=== PATIENT | male | born 1990 | race African-American/Black ===

== ENCOUNTER 2019-12-26 14:26 | Inpatient (IN) ==
--- NOTE | 2019-12-26 14:56 | Emergency Department Note ---
Impression & Plan Rhabdomyolysis, Edema of both upper extremities ED Provider Note NAME: MARIZOL [id number] SONG AGE: 29 SEX: M : 1990 ARRIVES VIA: Walk-In INFORMANT: [Patient][[facility] staff] ED PROVIDER(S): [Jose Huggins MD] CHIEF COMPLAINT: Arm swelling HISTORY OF PRESENT ILLNESS: The patient is a 29-year-old male prisoner who states that last week, 5 days ago, he exercised at the gym. He did a lot of curls and pull-ups. The next day, his arms were sore. Over the last few days he has noticed increasing edema of his arms from the biceps to the mid forearms. There is some pain but it is minimal. The patient states that today, his urine was dark. [facility] and was sent to the ED for the possibility of rhabdomyolysis. The patient states he has never had this happen to him before. He has never had dark urine before. He has no known kidney issues. Again, he has minimal to no pain, just the swelling. It is hard to straighten his elbows completely because of the edema. There has been no cough or cold or shortness of breath. No chest pain, no abd ominal pain. REVIEW OF SYSTEMS: See HPI for pertinent positives and negatives. A total of ten systems were reviewed and were otherwise negative. PMHx/PSHx: See Below SOCIAL HISTORY: See Below. PHYSICAL EXAM: GENERAL: Patient is in no acute distress. HEENT: No acute trauma, normocephalic atraumatic, mucous membranes moist, no nasal congestion, no scleral icterus. NECK: No stridor, no adenopathy, no meningismus, trachea is midline. LUNGS: Clear to auscultation bilaterally, no wheeze, no rhonchi, breath sounds equal. HEART: Without murmurs gallops or rubs, regular rate and rhythm. ABDOMEN: Soft, nontender, bowel sounds positive, no hernias, no peritonitis. EXTREMITIES: No cyanosis. Equal pulses in both upper extremities. He has difficulty straightening both arms at the elbows. There is edema from the mid biceps to the mid forearms. Minimal pain with palpation. No erythema. No lower extremity edema. NEUROLOGIC: Oriented x 3, no acute motor or sensory deficits, no focal weakness. SKIN: No rash, no jaundice, no diaphoresis. DIFFERENTIAL DIAGNOSIS: Rhabdomyolysis, DVT, muscle breakdown, muscle tear, compartment syndrome, renal failure, dehydration, electrolyte imbalance. EMERGENCY DEPARTMENT COURSE/PROCEDURES: ECG: Indication was possible renal failure as well as upper extremity pain. The ECG shows a normal sinus rhythm with a rate of 60. There is no ST elevation, no PVCs. The QTc is 406. Continuous Cardiac Monitoring: An order was placed for continuous cardiac monitoring. The monitor shows a rate of 58 with sinus bradycardia. MEDICAL DECISION MAKING: There is no leukocytosis or concerning anemia. There is a normal platelet count. No renal failure or significant electrolyte abnormality. Lactic acid level is not elevated making sepsis unlikely. AST and ALT were elevated, the bilirubin was normal. Total creatinine kinase was elevated at over 100,000. This creatinine kinase elevation is consistent with rhabdomyolysis. The patient appeared to be in a euthyroid state. Urinalysis showed some red cells, no evidence for infection. Bilateral upper extremity ultrasound did not show any evidence for DVT. On exam, there was no evidence for compartment syndrome, the patient did not have any real pain in the upper arms. There were strong pulses in both upper extremities bilaterally. The patient received IV saline, 2 L of saline were given. The patient presents with upper arm edema. He was working out with weights before his symptoms began. He appears to have rhabdomyolysis. I did speak with orthopedics--no emergent orthopedic intervention is required. I spoke at length with the patient and guards. I spoke with the vocational case manager. Hospitalization is warranted. The on-call hospitalist was consulted. Past Med/Surg History Medical History Asthma Surgical History No pertinent past surgical history Family History Other Family history non-contributory Social History Smoking Status: Former smoker Tobacco Type: Cigarettes Hx Alcohol Use: No Hx Substance Use: No Preferred Language: Azeri Communication Ability: Effective Public Health Engineer Required: No Beliefs That Will Affect Care: None Current Living Situation: Other Current Living Situation Comment: [facility] Feels Safe at Home: Yes Allergies Allergies Allergy/AdvReac Type Severity Reaction Status Date / Time No Known Allergies Allergy Verified 12/26/19 15:51 Home Meds Home Medications Medication Instructions Recorded Confirmed fluticasone propionate 1 applic TOPICAL TID 12/26/19 12/26/19 [id number], wh 1 applic TOPICAL BID 12/26/19 12/26/19 [Cetaphil Moisturizing] levalbuterol tartrate [Xopenex HFA] 2 inh INHALATION QID PRN 12/26/19 12/26/19 terbinafine HCl 1 applic TOPICAL TID 12/26/19 12/26/19 Results & Data (ED) Vital Signs Vital Signs - 24 hr 12/26/19 14:33 12/26/19 15:35 12/26/19 15:44 Temperature 37.3 C Temperature Source Oral Pulse Rate 80 69 65 Pulse Rate [Apical] Respiratory Rate 20 17 17 Respiratory Effort / Characteristics Non-Labored Respiratory Depth Normal Blood Pressure 134/72 129/76 Blood Pressure [Right Arm] Blood Pressure Mean 92 86 Blood Pressure Mean [Right Arm] Pulse Oximetry 99 Oxygen Delivery Method Room Air Sepsis Recent Fever Within 48 Hours No Sepsis New/Unexplained Change in Mental Status N/A Sepsis Action Taken by Nursing No Action Required 12/26/19 17:44 12/26/19 17:45 Temperature Temperature Source Pulse Rate 57 L Pulse Rate [Apical] 66 Respiratory Rate 18 18 Respiratory Effort / Characteristics Respiratory Depth Blood Pressure 154/75 H Blood Pressure [Right Arm] 154/75 H Blood Pressure Mean 97 Blood Pressure Mean [Right Arm] 101 Pulse Oximetry 100 100 Oxygen Delivery Method Room Air Room Air Sepsis Recent Fever Within 48 Hours Sepsis New/Unexplained Change in Mental Status Sepsis Action Taken by [facility]itent[facility] Medications Current Medication List: was personally reviewed by me Laboratory Data Attestation: I reviewed the patient's lab results. Result diagrams: 12/26/19 15:10 12/26/19 20:52 Lab Results 12/26/19 12/26/19 12/26/19 Range/Units 15:10 15:10 15:27 WBC 6.54 (4.8-10.8) K/uL RBC 5.07 (4.7-6.1) M/uL Hgb 14.2 (14.0-18.0) g/dL Hct 44.8 (42-52) % MCV 88.4 (80-100) fL MCH 28.0 (25-34) pg MCHC 31.7 L (32-36) g/dL RDW Std Deviation 45.1 (36.4-46.3) fL RDW Coeff of Sulema 13.9 (11.5-14.5) % Plt Count 189 (130-400) K/uL MPV 12.0 H (7.4-10.4) fL Immature Gran % (Auto) 0.2 % Neut % (Auto) 77.2 % Lymph % (Auto) 17.1 % Webb % (Auto) 4.4 % Eos % (Auto) 0.9 % Baso % (Auto) 0.2 % Neut # (Auto) 5.05 (1.4-6.5) K/uL Lymph # (Auto) 1.12 L (1.2-3.4) K/uL Webb # (Auto) 0.29 (0.11-0.59) K/uL Eos # (Auto) 0.06 (0-0.5) K/uL Baso # (Auto) 0.01 (0-0.2) K/uL Immature Gran # (Auto) 0.01 (0.00-0.02) K/uL Sodium 144 (136-145) mmol/L Potassium 4.3 (3.5-5.1) mmol/L Chloride 110 H (98-107) mmol/L Carbon Dioxide 29 (21-32) mmol/L Anion Gap 5.0 (3-11) BUN 12 (7-18) mg/dl Creatinine 1.15 (0.6-1.4) mg/dl Est Cr Clr Drug Dosing 107.2 ml/min Est GFR ( Amer) 97.7 Est GFR (Non-Af Amer) 84.3 BUN/Creatinine Ratio 10.1 (10-20) Glucose 90 (70-99) mg/dl Lactate 1.5 (0.4-2.0) mmol/L Calcium 8.6 (8.5-10.1) mg/dl Magnesium 2.1 (1.8-2.4) mg/dl Total Bilirubin 0.5 (0.2-1) mg/dl AST 1880 H (15-37) U/L ALT 493 H (12-78) U/L Alkaline Phosphatase 75 (45-117) U/L Total Creatine Kinase > [id number] H (39-308) U/L Troponin I < 0.015 (0-0.045) ng/ml Total Protein 7.1 (6.4-8.2) gm/dl Albumin 3.7 (3.4-5.0) gm/dl Globulin 3.4 (2.5-4.0) gm/dl Albumin/Globulin Ratio 1.1 (0.9-2) TSH 0.943 (0.300-4.500) uIu/ml Urine Color Urine Appearance (Clear) Urine pH (4.5-7.5) Ur Specific Ward (1.000-1.030) Urine Protein (Negative) Urine Glucose (UA) (Negative) Urine Ketones (Negative) Urine Blood (Negative) Urine Nitrite (Negative) Urine Bilirubin (Negative) Urine Urobilinogen (Negative) Ur Leukocyte Esterase (Negative) Urine WBC (Auto) (0-5) /hpf Urine RBC (Auto) (0-4) /hpf U Hyaline Cast (Auto) (0-5) /lpf U Epithel Cells (Auto) (0-5) /lpf Urine Bacteria (Auto) (Negative) Hep Bs Antigen (Neg) Hepatitis C Antibody (Neg) 12/26/19 12/26/19 Range/Units 15:27 17:45 WBC (4.8-10.8) K/uL RBC (4.7-6.1) M/uL Hgb (14.0-18.0) g/dL Hct (42-52) % MCV (80-100) fL MCH (25-34) pg MCHC (32-36) g/dL RDW Std Deviation (36.4-46.3) fL RDW Coeff of Sulema (11.5-14.5) % Plt Count (130-400) K/uL MPV (7.4-10.4) fL Immature Gran % (Auto) % Neut % (Auto) % Lymph % (Auto) % Webb % (Auto) % Eos % (Auto) % Baso % (Auto) % Neut # (Auto) (1.4-6.5) K/uL Lymph # (Auto) (1.2-3.4) K/uL Webb # (Auto) (0.11-0.59) K/uL Eos # (Auto) (0-0.5) K/uL Baso # (Auto) (0-0.2) K/uL Immature Gran # (Auto) (0.00-0.02) K/uL Sodium (136-145) mmol/L Potassium (3.5-5.1) mmol/L Chloride (98-107) mmol/L Carbon Dioxide (21-32) mmol/L Anion Gap (3-11) BUN (7-18) mg/dl Creatinine (0.6-1.4) mg/dl Est Cr Clr Drug Dosing ml/min Est GFR ( Amer) Est GFR (Non-Af Amer) BUN/Creatinine Ratio (10-20) Glucose (70-99) mg/dl Lactate (0.4-2.0) mmol/L Calcium (8.5-10.1) mg/dl Magnesium (1.8-2.4) mg/dl Total Bilirubin (0.2-1) mg/dl AST (15-37) U/L ALT (12-78) U/L Alkaline Phosphatase (45-117) U/L Total Creatine Kinase (39-308) U/L Troponin I (0-0.045) ng/ml Total Protein (6.4-8.2) gm/dl Albumin (3.4-5.0) gm/dl Globulin (2.5-4.0) gm/dl Albumin/Globulin Ratio (0.9-2) TSH (0.300-4.500) uIu/ml Urine Color Yellow Urine Appearance Clear (Clear) Urine pH 8.5 H (4.5-7.5) Ur Specific Ward 1.018 (1.000-1.030) Urine Protein 1+ H (Negative) Urine Glucose (UA) Negative (Negative) Urine Ketones Negative (Negative) Urine Blood 3+ H (Negative) Urine Nitrite Negative (Negative) Urine Bilirubin Negative (Negative) Urine Urobilinogen Negative (Negative) Ur Leukocyte Esterase Negative (Negative) Urine WBC (Auto) 0 (0-5) /hpf Urine RBC (Auto) 5-10 H (0-4) /hpf U Hyaline Cast (Auto) 0 (0-5) /lpf U Epithel Cells (Auto) 5-10 H (0-5) /lpf Urine Bacteria (Auto) Negative (Negative) Hep Bs Antigen Neg (Neg) Hepatitis C Antibody Neg (Neg) Administered Medications Sodium Chloride (Nss 1000ml) 1,000 mls @ 200 mls/hr IV .Q5H ADRIANNA Stop: 01/25/20 18:43 Last Admin: 12/26/19 20:54 Dose: 200 mls/hr Documented by: [id number] Discontinued Medications Sodium Chloride (Nss 1000ml) 1,000 mls @ 999 mls/hr IV .Q1H1M ADRIANNA Stop: 12/26/19 16:00 Last Infusion: 12/26/19 16:54 Dose: 0 mls/hr Documented by: [id number] Admin: 12/26/19 15:36 Dose: 999 mls/hr Documented by: [id number] Sodium Chloride (Nss 1000ml) 1,000 mls @ 999 mls/hr IV .Q1H1M ONE Stop: 12/26/19 18:26 Last Infusion: 12/26/19 18:52 Dose: 0 mls/hr Documented by: [id number] Admin: 12/26/19 17:44 Dose: 999 mls/hr Documented by: [id number] Imaging Data Radiologist's Impression: US venous doppler UE BI HISTORY: 29 years-old Male swelling, poss clot acute pain and swelling of the bilateral upper cavities COMPARISON: None TECHNIQUE: Multiple real-time sonographic images of the bilateral upper cavity deep venous structures were obtained assessing grayscale appearance, color and spectral flow FINDINGS: Normal flow, compressibility, phasicity and augmentation of the bilateral upper extremity deep venous structures. Nonspecific subcutaneous edema is noted the bilateral antecubital fossa distributions. IMPRESSION: No sonographic evidence of deep venous thrombosis. Blood Pressure Blood Pressure Findings: Elevated blood pressure Blood Pressure Disposition: further management by hospitalist Discharge Plan Visit Data *Final* Discharge Date/Time: 12/26/19 20:20 Chief Complaint: Elbow Injury/Pain Stated Complaint: RHABDOMYOLYSIS ED Provider: Jose Huggins Discharge Problem: Rhabdomyolysis, Edema of both upper extremities Patient Disposition: Admitted As Inpatient Condition: Good Discharge Instructions Interventions: ED Discharge Assessment Last Done: 12/26/19 20:20 Discharge Problem: Rhabdomyolysis Qualifiers: Rhabdomyolysis type: non-traumatic Qualified Code(s): M62.82 - Rhabdomyolysis
[2019-12-26] MEDS ORDERED: SODIUM CHLORIDE 0.9% 1000ML 1,000 ML IV SCH (15:00)
[2019-12-26 15:18] LABS: Basophils # (auto) 0.01 K/uL (0-0.2); Basophils % (auto) 0.2 %; Eosinophils # (auto) 0.06 K/uL (0-0.5); Eosinophils % (auto) 0.9 %; Hematocrit (blood only) 44.8 % (42-52); Hemoglobin 14.2 g/dL (14.0-18.0); Immature Granulocytes # (auto) 0.01 K/uL (0.00-0.02); Immature Granulocytes % (auto) 0.2 %; Lymphocytes # (auto) 1.12 K/uL (1.2-3.4); Lymphocytes % (auto) 17.1 %; Mean Corpuscular Hgb Conc 31.7 g/dL (32-36); Mean Corpuscular Volume 88.4 fL (80-100); Monocytes # (auto) 0.29 K/uL (0.11-0.59); Monocytes % (auto) 4.4 %; Neutrophils # (auto) 5.05 K/uL (1.4-6.5); Neutrophils % (auto) 77.2 %; Platelet Count 189 K/uL (130-400); RDW Coefficient of Variation 13.9 % (11.5-14.5); RDW Standard Deviation 45.1 fL (36.4-46.3); Red Blood Count 5.07 M/uL (4.7-6.1); White Blood Count 6.54 K/uL (4.8-10.8)
[2019-12-26 16:11] LABS: Alanine Aminotransferase 493 U/L (12-78); Albumin Globulin Ratio 1.1 (0.9-2); Albumin Level 3.7 gm/dl (3.4-5.0); Alkaline Phosphatase 75 U/L (45-117); BUN Creatinine Ratio 10.1 (10-20); Bilirubin,Total 0.5 mg/dl (0.2-1); Blood Urea Nitrogen 12 mg/dl (7-18); Calcium 8.6 mg/dl (8.5-10.1); Carbon Dioxide 29 mmol/L (21-32); Chloride 110 mmol/L (98-107); Creatinine Clr Calc Pharmacy 107.2 ml/min; Est GFR (African American) 97.7; Est GFR (Non-African American) 84.3; Globulin 3.4 gm/dl (2.5-4.0); Glucose 90 mg/dl (70-99); Potassium 4.3 mmol/L (3.5-5.1); Sodium 144 mmol/L (136-145); Thyroid Stimulating Hormone 0.943 uIu/ml (0.300-4.500); Total Protein 7.1 gm/dl (6.4-8.2); Troponin I < 0.015 ng/ml (0-0.045)
[2019-12-26 16:12] LABS: Magnesium 2.1 mg/dl (1.8-2.4)
[2019-12-26 17:13] LABS: Aspartate Aminotransferase 1880 U/L (15-37); Creatine Kinase > 100000 U/L (39-308)
--- NOTE | 2019-12-26 17:17 | Ultrasound Report ---
US venous doppler UE BI HISTORY: 29 years-old Male swelling, poss clot acute pain and swelling of the bilateral upper caviti es COMPARISON: None TECHNIQUE: Multiple real-time sonographic images of the bilateral upper cavity deep venous structures were obtained assessing grayscale appearance, color and spectral flow FINDINGS: Normal flow, compressibility, phasicity and augmentation of the bilateral upper extremity deep venous structures. Nonspecific subcutaneous edema is noted the bilateral antecubital fossa distributions. IMPRESSION: No sonographic evidence of deep venous thrombosis. ACT 112: Negative or not required by law. The above report was generated using voice recognition software. It may contain grammatical, syntax o r spelling errors. Electronically signed by: Lion Montanez M.D. 12/26/2019 5:16 PM
[2019-12-26] MEDS ORDERED: SODIUM CHLORIDE 0.9% 1000ML 1,000 ML IV ONE (17:26)
[2019-12-26 18:02] LABS: Appearance Urine Clear (Clear); Bacteria Urine Automated Negative (Negative); Bilirubin Urine Negative (Negative); Blood Urine 3+ (Negative); Cast Urine Automated 0 /lpf (0-5); Color Urine Yellow; Glucose Urine UA Negative (Negative); Ketones Urine Negative (Negative); Leukocyte Esterase Urine Negative (Negative); Nitrite Urine Negative (Negative); Specific Gravity Urine 1.018 (1.000-1.030); Urobilinogen Urine Negative (Negative); WBC Urine Automated 0 /hpf (0-5); pH Urine 8.5 (4.5-7.5)
[2019-12-26 18:04] LABS: Protein Urine 1+ (Negative)
[2019-12-26 18:05] LABS: Sulfosalicylic Acid Urine Positive (Negative)
--- NOTE | 2019-12-26 19:10 | History & Physical Report ---
Date of Service December 26, 2019 Assessment & Plan (1) Rhabdomyolysis: 29 yo M PMHx asthma presents for rhabdomyolysis and transaminitis. Rhabdomyolysis without acute kidney injury or compartment syndrome: -CK on arrival >100,000. -Without MARY at this time, Creatinine 1.1 on arrival though unclear baseline. -Patient without pain in bilateral UE at this time, and without signs of compartment syndrome and no DVT on US bilateral UE. -Has received a total of 2L NSS bolus in ED; will start NSS at rate of 200cc/hr once that completes. -Strict Is/Os to monitor for oliguria. -Repeat CMP, phosphorus, CPK q6h to trend LFTs, kidney function, electrolyte derangements. -Serial exams to continue to monitor for compartment syndrome. Transaminitis: -With AST 1880, ALT 493 on arrival. -Likely due to rhabdomyolysis as above. -However, due to patients risk factors living in a correctional facility, have ordered Hepatitis panel and APAP level. -Trend LFTs while admitted. Microscopic Hematuria: -On UA patient with blood and 5-10 RBCs. -While would expect to find blood on UA due to myoglobinuria in rhabdomyolysis, would not expect microscopic hematuria. -Will need repeat UA in the future to evaluate for continued microscopic hematuria. Asthma: -Chronic, on albuterol PRN outpatient. -Continue albuterol PRN. Code Status: FULL CODE FEN/GI: Regular diet DVT ppx: SCDs Dispo: Med/Surg with Telemetry (2) Transaminitis: (3) Microscopic hematuria: (4) Asthma: History of Present Illness Primary Care Provider: [facility] 29 yo M PMHx asthma presents from [facility] for bilateral bicep swelling x5 days. Reports that on Wednesday he did his typical work out, which includes bicep curls pushups and pull ups, and the following day he felt sore. Due to his soreness he took 1 or 2 ibuprofen but no Tylenol. Since Wednesday has started noticing worsening swelling of his biceps bilaterally as well as darkening urine, though the soreness he had on Wednesday has somewhat resolved. Was evaluated at the [facility] and advised to come to ED for concern for rhabdomyolysis. Does not recall any direct trauma to either arm. Was not working out in a more vigorous capacity than his norm. No fevers or chills, no SOB or CP, no nausea or vomiting, no arm or leg pains, no constipation or diarrhea. No new medications. In the ED had labwork which showed AST 1880, ALT 493, CK >100,000, Cr 1.1 (no baseline on file), TSH normal, CBC without anemia, leukocytosis, thrombocytopenia. Had US bilateral UE without evidence of DVT. UA with blood and RBCs. Dr. Sousa with Orthopedics evaluated patient and did not feel that the patient was developing compartment syndrome. Patient was given a total of 2L NSS boluses. Hospitalist service consulted for admission. Allergies Allergy/AdvReac Type Severity Reaction Status Date / Time No Known Allergies Allergy Verified 12/26/19 15:51 Home Medications Home Medications Medication Instructions Recorded Confirmed Type fluticasone propionate 1 applic TOPICAL TID 12/26/19 12/26/19 History baetxvzm-wkrbhwggyny-ubpdg, wh 1 applic TOPICAL BID 12/26/19 12/26/19 History [Cetaphil Moisturizing] levalbuterol tartrate [Xopenex HFA] 2 inh INHALATION QID PRN 12/26/19 12/26/19 History terbinafine HCl 1 applic TOPICAL TID 12/26/19 12/26/19 History Past Med/Surg History Medical History Asthma Surgical History No pertinent past surgical history Family History Other Family history non-contributory Social History Smoking Status: Former smoker Tobacco Type: Cigarettes Current Living Situation: Other Current Living Situation Comment: [facility] Feels Safe at Home: Yes Review of Systems Review of Systems: All systems reviewed & are unremarkable except as noted in HPI & below Constitutional: no fever and no chills Respiratory: no cough and no dyspnea Cardiovascular: no chest pain, no palpitations and no edema Gastrointestinal: no abdominal pain, no constipation and no diarrhea/loose stools Physical Exam Constitutional: WD/WN, vitals as above Eyes: PERRL, conjunctivae normal, anicteric sclerae ENMT: external ear and nose normal, oropharynx normal Neck: normal visual inspection Respiratory: normal respiratory effort, lungs clear to auscultation Cardiovascular: RRR, no murmur, no edema peripheral pulses intact bilateral UE Gastrointestinal (Abdomen): normal bowel sounds, soft, nontender, no hepatosplenomegaly Musculoskeletal: no cyanosis or clubbing, extremities motor strength 5/5 Skin: no rashes, warm and dry bilateral biceps with tense skin, no erythema or warmth, no tenderness to palpation Neurologic: moves all extremities; no focal motor deficits Speech / Cognition: normal speech Motor/Sensory: no tremor sensation intact bilateral UE Psychiatric: A+Ox3, euthymic affect Results & Data Results & Data ([facility]) Vital Signs (Past 12 Hours) Vital Signs Temp Pulse Pulse Resp BP BP Pulse Ox 12/26/19 18:48 58 L 19 100 12/26/19 17:45 66 18 154/75 H 100 12/26/19 17:44 57 L 18 154/75 H 100 12/26/19 15:44 65 17 12/26/19 15:35 69 17 129/76 12/26/19 14:33 37.3 C 80 20 134/72 99 Laboratory Results 12/26/19 12/26/19 12/26/19 Range/Units 17:45 15:27 15:27 WBC (4.8-10.8) K/uL RBC (4.7-6.1) M/uL Hgb (14.0-18.0) g/dL Hct (42-52) % MCV (80-100) fL MCH (25-34) pg MCHC (32-36) g/dL RDW Std Deviation (36.4-46.3) fL RDW Coeff of Sulema (11.5-14.5) % Plt Count (130-400) K/uL MPV (7.4-10.4) fL Immature Gran % (Auto) % Neut % (Auto) % Lymph % (Auto) % [place] % (Auto) % Eos % (Auto) % Baso % (Auto) % Neut # (Auto) (1.4-6.5) K/uL Lymph # (Auto) (1.2-3.4) K/uL [place] # (Auto) (0.11-0.59) K/uL Eos # (Auto) (0-0.5) K/uL Baso # (Auto) (0-0.2) K/uL Immature Gran # (Auto) (0.00-0.02) K/uL Sodium (136-145) mmol/L Potassium (3.5-5.1) mmol/L Chloride (98-107) mmol/L Carbon Dioxide (21-32) mmol/L Anion Gap (3-11) BUN (7-18) mg/dl Creatinine (0.6-1.4) mg/dl Est Cr Clr Drug Dosing ml/min Est GFR ( Amer) Est GFR (Non-Af Amer) BUN/Creatinine Ratio (10-20) Glucose (70-99) mg/dl Lactate 1.5 (0.4-2.0) mmol/L Calcium (8.5-10.1) mg/dl Magnesium (1.8-2.4) mg/dl Total Bilirubin (0.2-1) mg/dl AST (15-37) U/L ALT (12-78) U/L Alkaline Phosphatase (45-117) U/L Total Creatine Kinase (39-308) U/L Troponin I (0-0.045) ng/ml Total Protein (6.4-8.2) gm/dl Albumin (3.4-5.0) gm/dl Globulin (2.5-4.0) gm/dl Albumin/Globulin Ratio (0.9-2) TSH (0.300-4.500) uIu/ml Urine Color Yellow Urine Appearance Clear (Clear) Urine pH 8.5 H (4.5-7.5) Ur Specific [place] 1.018 (1.000-1.030) Urine Protein 1+ H (Negative) Urine Glucose (UA) Negative (Negative) Urine Ketones Negative (Negative) Urine Blood 3+ H (Negative) Urine Nitrite Negative (Negative) Urine Bilirubin Negative (Negative) Urine Urobilinogen Negative (Negative) Ur Leukocyte Esterase Negative (Negative) Urine WBC (Auto) 0 (0-5) /hpf Urine RBC (Auto) 5-10 H (0-4) /hpf U Hyaline Cast (Auto) 0 (0-5) /lpf U Epithel Cells (Auto) 5-10 H (0-5) /lpf Urine Bacteria (Auto) Negative (Negative) Hep Bs Antigen Pending Hepatitis C Antibody Pending 12/26/19 12/26/19 Range/Units 15:10 15:10 WBC 6.54 (4.8-10.8) K/uL RBC 5.07 (4.7-6.1) M/uL Hgb 14.2 (14.0-18.0) g/dL Hct 44.8 (42-52) % MCV 88.4 (80-100) fL MCH 28.0 (25-34) pg MCHC 31.7 L (32-36) g/dL RDW Std Deviation 45.1 (36.4-46.3) fL RDW Coeff of Sulema 13.9 (11.5-14.5) % Plt Count 189 (130-400) K/uL MPV 12.0 H (7.4-10.4) fL Immature Gran % (Auto) 0.2 % Neut % (Auto) 77.2 % Lymph % (Auto) 17.1 % [place] % (Auto) 4.4 % Eos % (Auto) 0.9 % Baso % (Auto) 0.2 % Neut # (Auto) 5.05 (1.4-6.5) K/uL Lymph # (Auto) 1.12 L (1.2-3.4) K/uL [place] # (Auto) 0.29 (0.11-0.59) K/uL Eos # (Auto) 0.06 (0-0.5) K/uL Baso # (Auto) 0.01 (0-0.2) K/uL Immature Gran # (Auto) 0.01 (0.00-0.02) K/uL Sodium 144 (136-145) mmol/L Potassium 4.3 (3.5-5.1) mmol/L Chloride 110 H (98-107) mmol/L Carbon Dioxide 29 (21-32) mmol/L Anion Gap 5.0 (3-11) BUN 12 (7-18) mg/dl Creatinine 1.15 (0.6-1.4) mg/dl Est Cr Clr Drug Dosing 107.2 ml/min Est GFR ( Amer) 97.7 Est GFR (Non-Af Amer) 84.3 BUN/Creatinine Ratio 10.1 (10-20) Glucose 90 (70-99) mg/dl Lactate (0.4-2.0) mmol/L Calcium 8.6 (8.5-10.1) mg/dl Magnesium 2.1 (1.8-2.4) mg/dl Total Bilirubin 0.5 (0.2-1) mg/dl AST 1880 H (15-37) U/L ALT 493 H (12-78) U/L Alkaline Phosphatase 75 (45-117) U/L Total Creatine Kinase > 282662 H (39-308) U/L Troponin I < 0.015 (0-0.045) ng/ml Total Protein 7.1 (6.4-8.2) gm/dl Albumin 3.7 (3.4-5.0) gm/dl Globulin 3.4 (2.5-4.0) gm/dl Albumin/Globulin Ratio 1.1 (0.9-2) TSH 0.943 (0.300-4.500) uIu/ml Urine Color Urine Appearance (Clear) Urine pH (4.5-7.5) Ur Specific [place] (1.000-1.030) Urine Protein (Negative) Urine Glucose (UA) (Negative) Urine Ketones (Negative) Urine Blood (Negative) Urine Nitrite (Negative) Urine Bilirubin (Negative) Urine Urobilinogen (Negative) Ur Leukocyte Esterase (Negative) Urine WBC (Auto) (0-5) /hpf Urine RBC (Auto) (0-4) /hpf U Hyaline Cast (Auto) (0-5) /lpf U Epithel Cells (Auto) (0-5) /lpf Urine Bacteria (Auto) (Negative) Hep Bs Antigen Hepatitis C Antibody Diagnostic Findings US venous doppler UE BI HISTORY: 29 years-old Male swelling, poss clot acute pain and swelling of the bilateral upper cavities COMPARISON: None TECHNIQUE: Multiple real-time sonographic images of the bilateral upper cavity deep venous structures were obtained assessing grayscale appearance, color and spectral flow FINDINGS: Normal flow, compressibility, phasicity and augmentation of the bilateral upper extremity deep venous structures. Nonspecific subcutaneous edema is noted the bilateral antecubital fossa distributions. IMPRESSION: No sonographic evidence of deep venous thrombosis. Code Status & VTE Plan VTE Prophylaxis Plan VTE Prophylaxis will be ordered: Yes Supervising Physician Co-Signing Physician Notes I personally examined the patient and verified all william points of history and exam, discussed case, and agree with decision making with Dr. Manning with the following additions/exceptions: Patient is a 29-year-old male with a history of asthma, who presents with bilateral upper extremity swelling and pain after a heavy upper body workout 4 days ago. He also had dark urine. He has no history of rhabdomyolysis personally or in his family history. He denies any other recent illnesses, no chest pain or shortness of breath, no nausea or vomiting, no diarrhea, no abdominal pains. He denies loss of sensation or strength in his arms or hands but is having difficulty bending at the elbow due to the edema. History and ROS reviewed as above Vitals reviewed Gen: AAOx3, NAD HEENT: Anicteric sclerae, EOMI CV: RRR no mgr nl S1S2 Pulm: CTAB no wcr Abd: +BS soft NT ND no masses or hernias Ext: Bilateral upper extremities with tense edema from mid biceps down to the mid forearms, nontender to the touch, 2+ radial pulses bilaterally, sensation intact to light touch in the forearms and hands throughout, motor strength 5 out of 5 in upper extremities bilaterally Skin: No rashes, warm/dry Neuro: Full strength throughout 29-year-old male here with severe rhabdomyolysis secondary to excessive abbey ghtlifting. -Aggressive IV fluid hydration and monitor for urine output-goal would be 200 mL's of urine per hour -Serial chemistries and CPK to ensure no electrolyte abnormalities, renal failure, and to ensure that CK is trending downward -If has electrolyte abnormalities, renal failure, would consult nephrology -If develops acidosis, would start bicarbonate infusion -Watch for clinical signs of compartment syndrome especially in the face of giving high levels of volume with normal saline Add on Lovenox for DVT prophylaxis Resident Activity Tracking Resident Involvement: Resident Care Provided Care Provided: Adult Hospital Medicine
--- NOTE | 2019-12-26 19:56 | Billing Data ---
Date of Service December 26, 2019 Coding Level of Care Code 40273 Initial Inpt Care Lvl 3
[2019-12-26 20:19] LABS: Hepatitis B Surface Antigen Neg (Neg)
[2019-12-26 20:48] LABS: Hepatitis C IgG 13Yrs+Old_Rflx Neg (Neg)
[2019-12-26] MEDS ORDERED: POLYETHYLENE (MIRALAX) 17 GM PACK PO PRN (20:48)
[2019-12-26] MEDS ORDERED: ONDANSETRON INJ 2 MG/ML 2 ML VIAL IV PRN (20:48)
[2019-12-26] MEDS ORDERED: LEVALBUTEROL TARTRATE 15 GM HFA.AER.AD INH PRN (20:48)
[2019-12-26] MEDS ORDERED: MoRPHine SULFATE 2 MG/ML CARP IV PRN (20:48)
[2019-12-26] MEDS: SODIUM CHLORIDE 0.9% 1000ML 1,000 ML IV SCH (20:54)
[2019-12-26 21:30] LABS: Albumin Level 3.5 gm/dl (3.4-5.0); BUN Creatinine Ratio 11.7 (10-20); Calcium 8.5 mg/dl (8.5-10.1); Creatinine Clr Calc Pharmacy 133.8 ml/min; Est GFR (African American) 126.3; Uric Acid 3.8 mg/dl (2.6-7.2)
[2019-12-26 21:37] LABS: Albumin Globulin Ratio 1.1 (0.9-2); Bilirubin,Total 0.6 mg/dl (0.2-1); Globulin 3.2 gm/dl (2.5-4.0); Phosphorus 3.4 mg/dl (2.5-4.9); Total Protein 6.7 gm/dl (6.4-8.2)
[2019-12-27] MEDS: SODIUM CHLORIDE 0.9% 1000ML 1,000 ML IV SCH ×6 (01:15→23:46)
[2019-12-27] MEDS: ENOXAPARIN INJ 40 MG/0.4 ML SYR SQ SCH (08:11)
[2019-12-27 08:34] LABS: Basophils # (auto) 0.01 K/uL (0-0.2); Basophils % (auto) 0.3 %; Eosinophils # (auto) 0.11 K/uL (0-0.5); Eosinophils % (auto) 2.8 %; Hematocrit (blood only) 41.6 % (42-52); Hemoglobin 13.4 g/dL (14.0-18.0); Lymphocytes # (auto) 1.43 K/uL (1.2-3.4); Lymphocytes % (auto) 36.4 %; Mean Corpuscular Hemoglobin 28.2 pg (25-34); Mean Corpuscular Hgb Conc 32.2 g/dL (32-36); Mean Corpuscular Volume 87.4 fL (80-100); Mean Platelet Volume 12.1 fL (7.4-10.4); Monocytes # (auto) 0.24 K/uL (0.11-0.59); Monocytes % (auto) 6.1 %; Neutrophils # (auto) 2.14 K/uL (1.4-6.5); Neutrophils % (auto) 54.4 %; Platelet Count 182 K/uL (130-400); RDW Coefficient of Variation 13.7 % (11.5-14.5); RDW Standard Deviation 44.2 fL (36.4-46.3); Red Blood Count 4.76 M/uL (4.7-6.1); White Blood Count 3.93 K/uL (4.8-10.8)
[2019-12-27 09:03] LABS: Albumin Level 3.2 gm/dl (3.4-5.0); BUN Creatinine Ratio 9.7 (10-20); Calcium 8.4 mg/dl (8.5-10.1); Creatinine Clr Calc Pharmacy 147.9 ml/min; Est GFR (African American) 135.9; Est GFR (Non-African American) 117.2; Potassium 4.3 mmol/L (3.5-5.1); Uric Acid 3.6 mg/dl (2.6-7.2)
[2019-12-27 09:32] LABS: Bilirubin Direct 0.1 mg/dl (0-0.2); Bilirubin,Total 0.6 mg/dl (0.2-1); Phosphorus 3.3 mg/dl (2.5-4.9); Total Protein 6.1 gm/dl (6.4-8.2)
--- NOTE | 2019-12-27 13:38 | Hospitalist Progress Note ---
Date of Service December 27, 2019 Assessment & Plan (1) Rhabdomyolysis: 29 yo M PMHx asthma presents for rhabdomyolysis and transaminitis. Rhabdomyolysis without acute kidney injury or compartment syndrome: * CK on arrival >100,000. Without MARY, Cr 1.1. US UE negative for DVT * CK still markedly elevated, 95,976. Cr 0.93 * Increase IVF to 225cc/hr * Labs in AM * Will repeat labs this evening and again in AM * No compartment syndrome at this time -- continue to monitor * I&O -- UO currenty 1.36ml/kg/hr (2) Transaminitis: * Improving * See #1 * AST 1880, ALT 493 on arrival, down to 1042, 384 * Likely due to rhabdomyolysis as above. * Hepatitis panel pending * LFTs in AM (3) Microscopic hematuria: * On UA patient with blood and 5-10 RBCs. * While would expect to find blood on UA due to myoglobinuria in rhabdomyo lysis, would not expect microscopic hematuria. * Will need repeat UA in the future to evaluate for continued microscopic hematuria. (4) Asthma: * Chronic, on albuterol PRN outpatient. * Continue albuterol PRN (5) DVT prophylaxis: * SCDs Dispo: continue IVF, daily labs. Possible discharge tomorrow vs Wednesday if labs returning to normal/correction able to continue fluids and check labs Admission and Anticipated Discharge Date Admission Date: December 26, 2019 Subjective Patient evaluated this afternoon. Making increased urine per his record. 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 Bilateral upper extremities still swollen, but not painful. States he does have some limited mobility with flexing and extending at the elbow. Patient denies fever, chills, chest pain, shortness of breath, n/v/d, dysuria at this time. Plans to continue fluids and monitor labs with possible discussion that this may be able to be continued at the correction if they are able to monitor his CK levels. Review of Systems Review of Systems: All systems reviewed & are unremarkable except as noted in HPI & below Physical Exam Constitutional: WD/WN, vitals as above no acute distress Eyes: PERRL, conjunctivae normal, anicteric sclerae Neck: trachea midline, no thyromegaly Respiratory: normal respiratory effort, lungs clear to auscultation Cardiovascular: RRR, no murmur, no edema Gastrointestinal (Abdomen): normal bowel sounds, soft, nontender, no hepatosplenomegaly Musculoskeletal: bilateral UE swelling. 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 Skin: no rashes, warm and dry Neurologic: patellar DTR's 2+ bilat, sensation intact Psychiatric: A+Ox3, euthymic affect Lymphatic: no cervical or axillary lymphadenopathy Results & Data Results & Data ([facility]) Vital Signs (Past 12 Hours) Vital Signs Temp Pulse Pulse Resp BP Pulse Ox 12/27/19 11:43 36.7 C 61 20 128/67 97 12/27/19 07:41 36.8 C 58 L 18 124/65 99 12/27/19 07:23 47 L 12/27/19 04:00 36.6 C 59 L 20 116/60 99 Laboratory Results 12/27/19 12/27/19 12/27/19 Range/Units 08:13 08:06 06:00 WBC 3.93 L (4.8-10.8) K/uL RBC 4.76 (4.7-6.1) M/uL Hgb 13.4 L (14.0-18.0) g/dL Hct 41.6 L (42-52) % MCV 87.4 (80-100) fL MCH 28.2 (25-34) pg MCHC 32.2 (32-36) g/dL RDW Std Deviation 44.2 (36.4-46.3) fL RDW Coeff of Sulema 13.7 (11.5-14.5) % Plt Count 182 (130-400) K/uL MPV 12.1 H (7.4-10.4) fL Immature Gran % (Auto) 0.0 % Neut % (Auto) 54.4 % Lymph % (Auto) 36.4 % [place] % (Auto) 6.1 % Eos % (Auto) 2.8 % Baso % (Auto) 0.3 % Neut # (Auto) 2.14 (1.4-6.5) K/uL Lymph # (Auto) 1.43 (1.2-3.4) K/uL [place] # (Auto) 0.24 (0.11-0.59) K/uL Eos # (Auto) 0.11 (0-0.5) K/uL Baso # (Auto) 0.01 (0-0.2) K/uL Immature Gran # (Auto) 0.00 (0.00-0.02) K/uL Sodium 142 (136-145) mmol/L Potassium 4.3 (3.5-5.1) mmol/L Chloride 111 H (98-107) mmol/L Carbon Dioxide 25 (21-32) mmol/L Anion Gap 6.0 (3-11) BUN 8 (7-18) mg/dl Creatinine 0.83 (0.6-1.4) mg/dl Est Cr Clr Drug Dosing 147.9 ml/min Est GFR ( Amer) 135.9 Est GFR (Non-Af Amer) 117.2 BUN/Creatinine Ratio 9.7 L (10-20) Glucose 83 (70-99) mg/dl Uric Acid 3.6 (2.6-7.2) mg/dl Calcium 8.4 L (8.5-10.1) mg/dl Phosphorus 3.3 (2.5-4.9) mg/dl Magnesium (1.8-2.4) mg/dl Total Bilirubin 0.6 (0.2-1) mg/dl Direct Bilirubin 0.1 (0-0.2) mg/dl AST 1042 H (15-37) U/L ALT 384 H (12-78) U/L Alkaline Phosphatase 67 (45-117) U/L Total Creatine Kinase 53872 H (39-308) U/L Total Protein 6.1 L (6.4-8.2) gm/dl Albumin 3.2 L (3.4-5.0) gm/dl Globulin (2.5-4.0) gm/dl Albumin/Globulin Ratio (0.9-2) Urine Color Urine Appearance (Clear) Urine pH (4.5-7.5) Ur Specific [place] (1.000-1.030) Urine Protein (Negative) Urine Glucose (UA) (Negative) Urine Ketones (Negative) Urine Blood (Negative) Urine Nitrite (Negative) Urine Bilirubin (Negative) Urine Urobilinogen (Negative) Ur Leukocyte Esterase (Negative) Urine WBC (Auto) (0-5) /hpf Urine RBC (Auto) (0-4) /hpf U Hyaline Cast (Auto) (0-5) /lpf U Epithel Cells (Auto) (0-5) /lpf Urine Bacteria (Auto) (Negative) Nasal Screen MRSA (PCR) Negative (Negative) Acetaminophen (10-30) ug/ml Hepatitis A IgM Ab Hep Bs Antigen (Neg) Hep B Core IgM Ab Hepatitis C Antibody (Neg) 12/26/19 12/26/19 12/26/19 Range/Units 20:52 20:52 20:52 WBC (4.8-10.8) K/uL RBC (4.7-6.1) M/uL Hgb (14.0-18.0) g/dL Hct (42-52) % MCV (80-100) fL MCH (25-34) pg MCHC (32-36) g/dL RDW Std Deviation (36.4-46.3) fL RDW Coeff of [place]ma (11.5-14.5) % Plt Count (130-400) K/uL MPV (7.4-10.4) fL Immature Gran % (Auto) % Neut % (Auto) % Lymph % (Auto) % [place] % (Auto) % Eos % (Auto) % Baso % (Auto) % Neut # (Auto) (1.4-6.5) K/uL Lymph # (Auto) (1.2-3.4) K/uL [place] # (Auto) (0.11-0.59) K/uL Eos # (Auto) (0-0.5) K/uL Baso # (Auto) (0-0.2) K/uL Immature Gran # (Auto) (0.00-0.02) K/uL Sodium (136-145) mmol/L Potassium (3.5-5.1) mmol/L Chloride (98-107) mmol/L Carbon Dioxide (21-32) mmol/L Anion Gap (3-11) BUN (7-18) mg/dl Creatinine (0.6-1.4) mg/dl Est Cr Clr Drug Dosing ml/min Est GFR ( Amer) Est GFR (Non-Af Amer) BUN/Creatinine Ratio (10-20) Glucose (70-99) mg/dl Uric Acid (2.6-7.2) mg/dl Calcium (8.5-10.1) mg/dl Phosphorus (2.5-4.9) mg/dl Magnesium (1.8-2.4) mg/dl Total Bilirubin (0.2-1) mg/dl Direct Bilirubin (0-0.2) mg/dl AST (15-37) U/L ALT (12-78) U/L Alkaline Phosphatase (45-117) U/L Total Creatine Kinase > 061046 H (39-308) U/L Total Protein (6.4-8.2) gm/dl Albumin (3.4-5.0) gm/dl Globulin (2.5-4.0) gm/dl Albumin/Globulin Ratio (0.9-2) Urine Color Urine Appearance (Clear) Urine pH (4.5-7.5) Ur Specific [place] (1.000-1.030) Urine Protein (Negative) Urine Glucose (UA) (Negative) Urine Ketones (Negative) Urine Blood (Negative) Urine Nitrite (Negative) Urine Bilirubin (Negative) Urine Urobilinogen (Negative) Ur Leukocyte Esterase (Negative) Urine WBC (Auto) (0-5) /hpf Urine RBC (Auto) (0-4) /hpf U Hyaline Cast (Auto) (0-5) /lpf U Epithel Cells (Auto) (0-5) /lpf Urine Bacteria (Auto) (Negative) Nasal Screen MRSA (PCR) (Negative) Acetaminophen < 2 L (10-30) ug/ml Hepatitis A IgM Ab Pending Hep Bs Antigen (Neg) Hep B Core IgM Ab Pending Hepatitis C Antibody (Neg) 12/26/19 12/26/19 12/26/19 Range/Units 20:52 17:45 15:27 WBC (4.8-10.8) K/uL RBC (4.7-6.1) M/uL Hgb (14.0-18.0) g/dL Hct (42-52) % MCV (80-100) fL MCH (25-34) pg MCHC (32-36) g/dL RDW Std Deviation (36.4-46.3) fL RDW Coeff of [place]ma (11.5-14.5) % Plt Count (130-400) K/uL MPV (7.4-10.4) fL Immature Gran % (Auto) % Neut % (Auto) % Lymph % (Auto) % [place] % (Auto) % Eos % (Auto) % Baso % (Auto) % Neut # (Auto) (1.4-6.5) K/uL Lymph # (Auto) (1.2-3.4) K/uL [place] # (Auto) (0.11-0.59) K/uL Eos # (Auto) (0-0.5) K/uL Baso # (Auto) (0-0.2) K/uL Immature Gran # (Auto) (0.00-0.02) K/uL Sodium 140 (136-145) mmol/L Potassium 4.0 (3.5-5.1) mmol/L Chloride 108 H (98-107) mmol/L Carbon Dioxide 26 (21-32) mmol/L Anion Gap 6.0 (3-11) BUN 11 (7-18) mg/dl Creatinine 0.93 (0.6-1.4) mg/dl Est Cr Clr Drug Dosing 133.8 ml/min Est GFR ( Amer) 126.3 Est GFR (Non-Af Amer) 109.0 BUN/Creatinine Ratio 11.7 (10-20) Glucose 86 (70-99) mg/dl Uric Acid 3.8 (2.6-7.2) mg/dl Calcium 8.5 (8.5-10.1) mg/dl Phosphorus 3.4 (2.5-4.9) mg/dl Magnesium (1.8-2.4) mg/dl Total Bilirubin 0.6 (0.2-1) mg/dl Direct Bilirubin (0-0.2) mg/dl AST 1527 H (15-37) U/L ALT 453 H (12-78) U/L Alkaline Phosphatase 70 (45-117) U/L Total Creatine Kinase (39-308) U/L Total Protein 6.7 (6.4-8.2) gm/dl Albumin 3.5 (3.4-5.0) gm/dl Globulin 3.2 (2.5-4.0) gm/dl Albumin/Globulin Ratio 1.1 (0.9-2) Urine Color Yellow Urine Appearance Clear (Clear) Urine pH 8.5 H (4.5-7.5) Ur Specific [place] 1.018 (1.000-1.030) Urine Protein 1+ H (Negative) Urine Glucose (UA) Negative (Negative) Urine Ketones Negative (Negative) Urine Blood 3+ H (Negative) Urine Nitrite Negative (Negative) Urine Bilirubin Negative (Negative) Urine Urobilinogen Negative (Negative) Ur Leukocyte Esterase Negative (Negative) Urine WBC (Auto) 0 (0-5) /hpf Urine RBC (Auto) 5-10 H (0-4) /hpf U Hyaline Cast (Auto) 0 (0-5) /lpf U Epithel Cells (Auto) 5-10 H (0-5) /lpf Urine Bacteria (Auto) Negative (Negative) Nasal Screen MRSA (PCR) (Negative) Acetaminophen (10-30) ug/ml Hepatitis A IgM Ab Hep Bs Antigen Neg (Neg) Hep B Core IgM Ab Hepatitis C Antibody Neg (Neg) 12/26/19 Range/Units 15:10 WBC (4.8-10.8) K/uL RBC (4.7-6.1) M/uL Hgb (14.0-18.0) g/dL Hct (42-52) % MCV (80-100) fL MCH (25-34) pg MCHC (32-36) g/dL RDW Std Deviation (36.4-46.3) fL RDW Coeff of [place]ma (11.5-14.5) % Plt Count (130-400) K/uL MPV (7.4-10.4) fL Immature Gran % (Auto) % Neut % (Auto) % Lymph % (Auto) % [place] % (Auto) % Eos % (Auto) % Baso % (Auto) % Neut # (Auto) (1.4-6.5) K/uL Lymph # (Auto) (1.2-3.4) K/uL [place] # (Auto) (0.11-0.59) K/uL Eos # (Auto) (0-0.5) K/uL Baso # (Auto) (0-0.2) K/uL Immature Gran # (Auto) (0.00-0.02) K/uL Sodium (136-145) mmol/L Potassium (3.5-5.1) mmol/L Chloride (98-107) mmol/L Carbon Dioxide (21-32) mmol/L Anion Gap (3-11) BUN (7-18) mg/dl Creatinine (0.6-1.4) mg/dl Est Cr Clr Drug Dosing ml/min Est GFR ( Amer) Est GFR (Non-Af Amer) BUN/Creatinine Ratio (10-20) Glucose (70-99) mg/dl Uric Acid (2.6-7.2) mg/dl Calcium (8.5-10.1) mg/dl Phosphorus (2.5-4.9) mg/dl Magnesium 2.1 (1.8-2.4) mg/dl Total Bilirubin (0.2-1) mg/dl Direct Bilirubin (0-0.2) mg/dl AST 1880 H (15-37) U/L ALT (12-78) U/L Alkaline Phosphatase (45-117) U/L Total Creatine Kinase > 475531 H (39-308) U/L Total Protein (6.4-8.2) gm/dl Albumin (3.4-5.0) gm/dl Globulin (2.5-4.0) gm/dl Albumin/Globulin Ratio (0.9-2) Urine Color Urine Appearance (Clear) Urine pH (4.5-7.5) Ur Specific [place] (1.000-1.030) Urine Protein (Negative) Urine Glucose (UA) (Negative) Urine Ketones (Negative) Urine Blood (Negative) Urine Nitrite (Negative) Urine Bilirubin (Negative) Urine Urobilinogen (Negative) Ur Leukocyte Esterase (Negative) Urine WBC (Auto) (0-5) /hpf Urine RBC (Auto) (0-4) /hpf U Hyaline Cast (Auto) (0-5) /lpf U Epithel Cells (Auto) (0-5) /lpf Urine Bacteria (Auto) (Negative) Nasal Screen MRSA (PCR) (Negative) Acetaminophen (10-30) ug/ml Hepatitis A IgM Ab Hep Bs Antigen (Neg) Hep B Core IgM Ab Hepatitis C Antibody (Neg) PG Care Time/CCT Total # of Minutes Spent Total Time Spent with Patient: Total time spent is greater than 50% in coordination of care (as documented) at patient's floor/unit and/or counseling patient: Coding Level of Care Code 86723 Subseq Hosp Care Lvl 3 Diagnoses Rhabdomyolysis M62.82 Rhabdomyolysis type: non-traumatic Transaminitis R74.0 Microscopic hematuria R31.29 Asthma J45.909 DVT prophylaxis Z29.9 (1) Rhabdomyolysis Rhabdomyolysis type: non-traumatic Qualified Code(s): M62.82 - Rhabdomyolysis
[2019-12-27 17:36] LABS: BUN Creatinine Ratio 9.3 (10-20); Calcium 8.2 mg/dl (8.5-10.1); Creatinine Clr Calc Pharmacy 127.9 ml/min; Est GFR (African American) 121.6; Est GFR (Non-African American) 104.9; Potassium 4.5 mmol/L (3.5-5.1)
[2019-12-28] MEDS: SODIUM CHLORIDE 0.9% 1000ML 1,000 ML IV SCH ×5 (04:09→22:26)
[2019-12-28 08:04] LABS: Hematocrit (blood only) 41.4 % (42-52); Hemoglobin 13.3 g/dL (14.0-18.0); Mean Corpuscular Hemoglobin 28.1 pg (25-34); Mean Corpuscular Hgb Conc 32.1 g/dL (32-36); Mean Corpuscular Volume 87.5 fL (80-100); Mean Platelet Volume 11.4 fL (7.4-10.4); Platelet Count 161 K/uL (130-400); RDW Coefficient of Variation 13.8 % (11.5-14.5); RDW Standard Deviation 44.4 fL (36.4-46.3); Red Blood Count 4.73 M/uL (4.7-6.1); White Blood Count 4.05 K/uL (4.8-10.8)
[2019-12-28] MEDS: ENOXAPARIN INJ 40 MG/0.4 ML SYR SQ SCH (08:08)
[2019-12-28 08:40] LABS: Alanine Aminotransferase 318 U/L (12-78); Albumin Level 3.1 gm/dl (3.4-5.0); Aspartate Aminotransferase 653 U/L (15-37); Bilirubin Direct < 0.1 mg/dl (0-0.2); Blood Urea Nitrogen 7 mg/dl (7-18); Calcium 8.6 mg/dl (8.5-10.1); Carbon Dioxide 24 mmol/L (21-32); Chloride 113 mmol/L (98-107); Creatinine Clr Calc Pharmacy 152.3 ml/min; Glucose 83 mg/dl (70-99); Potassium 3.9 mmol/L (3.5-5.1); Sodium 142 mmol/L (136-145)
--- NOTE | 2019-12-28 08:43 | Electrocardiogram Report ---
Test Reason : Blood Pressure : / mmHG Vent. Rate : 060 BPM Atrial Rate : 060 BPM P-R Int : 132 ms QRS Dur : 088 ms QT Int : 406 ms P-R-T Axes : 064 069 060 degrees QTc Int : 406 ms Normal sinus rhythm with sinus arrhythmia Normal ECG No previous ECGs available Confirmed by Judd Kaplan ([id number]) on 12/28/2019 8:43:32 AM Referred By: [facility] Confirmed By:Judd Kaplan
[2019-12-28 09:10] LABS: Alkaline Phosphatase 63 U/L (45-117); Bilirubin,Total 0.4 mg/dl (0.2-1); Total Protein 5.9 gm/dl (6.4-8.2)
[2019-12-28 10:28] LABS: Hepatitis A Antibody IgM NON-REACTIVE (NON-REACTIVE); Hepatitis B Core Antibody IgM NON-REACTIVE (NON-REACTIVE)
[2019-12-28 12:16] LABS: Creatine Kinase 41411 U/L (39-308)
--- NOTE | 2019-12-28 14:47 | Hospitalist Progress Note ---
Date of Service December 28, 2019 Assessment & Plan (1) Rhabdomyolysis: 29 yo M PMHx asthma presents for rhabdomyolysis and transaminitis. Rhabdomyolysis without acute kidney injury or compartment syndrome: * CK on arrival >100,000. Without MARY, Cr 1.1. US UE negative for DVT * IVF increased to 225cc/hr but will decrease back to 200cc/hr. Patient with significant response to IVF * [place] [address] on AM labs, down [place] 84544 on 12/26. Cr stable at 0.80 * No compartment syndrome at this time -- continue to monitor * I&Os acceptable * Labs in AM (2) Transaminitis: * Improving * See #1 * AST 1880, ALT 493 on arrival, down to 1042, 384 * Likely due to rhabdomyolysis as above. * Hepatitis panel negative * LFTs in AM (3) Microscopic hematuria: * On UA patient with blood and 5-10 RBCs. * While would expect to find blood on UA due to myoglobinuria in rhabdomyolysis, would not expect microscopic hematuria. * Will need repeat UA in the future to evaluate for continued microscopic hematuria. (4) Asthma: * Chronic, on albuterol PRN outpatient. * Continue albuterol PRN (5) DVT prophylaxis: * SCDs * Lovenox Dispo: continue IVF, daily labs. Possible discharge tomorrow if labs continue returning to normal/[facility] able to continue fluids and check labs Admission and Anticipated Discharge Date Admission Date: December 26, 2019 Subjective Patient evaluated this morning. Still with bilateral UE swelling. Feels like bal loon filled up too much. Still has sensation. 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 Still with limited ROM secondary to swelling. Producing copious amount of urine, now clearer yellow in color per patient. Denies any pain at this time, fever, chills, chest pain, shortness of breath, abdominal pain, n/v, dysuria. Has not had a bowel movement since admission and is typically regular daily. Will order miralax. Discussed if swelling improved tomorrow may be able to discharge on fluids and have daily lab checks. Review of Systems Review of Systems: All systems reviewed & are unremarkable except as noted in HPI & below Physical Exam Constitutional: WD/WN, vitals as above no acute distress Eyes: PERRL, conjunctivae normal, anicteric sclerae Neck: trachea midline, no thyromegaly Respiratory: normal respiratory effort, lungs clear to auscultation Cardiovascular: RRR, no murmur, no edema Gastrointestinal (Abdomen): normal bowel sounds, soft, nontender, no hepatosplenomegaly Musculoskeletal: bilateral UE swelling. 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 reworker strength bilaterally Skin: no rashes, warm and dry Neurologic: patellar DTR's 2+ bilat, sensation intact Psychiatric: A+Ox3, euthymic affect Lymphatic: no cervical or axillary lymphadenopathy Results & Data Results & Data ([facility]) Vital Signs (Past 12 Hours) Vital Signs Temp Pulse Pulse Resp BP BP Pulse Ox 12/28/19 11:30 36.8 C 59 L 18 127/69 100 12/28/19 07:29 48 L 12/28/19 07:03 36.8 C 82 16 138/81 100 12/28/19 03:08 36.7 C 59 L 18 128/68 100 Laboratory Results 12/28/19 12/28/19 12/27/19 Range/Units 07:35 07:35 17:03 WBC 4.05 L (4.8-10.8) K/uL RBC 4.73 (4.7-6.1) M/uL Hgb 13.3 L (14.0-18.0) g/dL Hct 41.4 L (42-52) % MCV 87.5 (80-100) fL MCH 28.1 (25-34) pg MCHC 32.1 (32-36) g/dL RDW Std Deviation 44.4 (36.4-46.3) fL RDW Coeff of Sulema 13.8 (11.5-14.5) % Plt Count 161 (130-400) K/uL MPV 11.4 H (7.4-10.4) fL Sodium 142 143 (136-145) mmol/L Potassium 3.9 4.5 (3.5-5.1) mmol/L Chloride 113 H 113 H (98-107) mmol/L Carbon Dioxide 24 25 (21-32) mmol/L Anion Gap 5.0 5.0 (3-11) BUN 7 9 (7-18) mg/dl Creatinine 0.80 0.96 (0.6-1.4) mg/dl Est Cr Clr Drug Dosing 152.3 127.9 ml/min Est GFR ( Amer) 138.0 121.6 Est GFR (Non-Af Amer) 119.0 104.9 BUN/Creatinine Ratio 9.0 L 9.3 L (10-20) Glucose 83 99 (70-99) mg/dl Calcium 8.6 8.2 L (8.5-10.1) mg/dl Total Bilirubin 0.4 (0.2-1) mg/dl Direct Bilirubin < 0.1 (0-0.2) mg/dl AST 653 H (15-37) U/L ALT 318 H (12-78) U/L Alkaline Phosphatase 63 (45-117) U/L Total Creatine Kinase 65500 H 25439 H (39-308) U/L Total Protein 5.9 L (6.4-8.2) gm/dl Albumin 3.1 L (3.4-5.0) gm/dl Hepatitis A IgM Ab (NON-REACTIVE) Hep B Core IgM Ab (NON-REACTIVE) 12/26/19 Range/Units 20:52 WBC (4.8-10.8) K/uL RBC (4.7-6.1) M/uL Hgb (14.0-18.0) g/dL Hct (42-52) % MCV (80-100) fL MCH (25-34) pg MCHC (32-36) g/dL RDW Std Deviation (36.4-46.3) fL RDW Coeff of Sulema (11.5-14.5) % Plt Count (130-400) K/uL MPV (7.4-10.4) fL Sodium (136-145) mmol/L Potassium (3.5-5.1) mmol/L Chloride (98-107) mmol/L Carbon Dioxide (21-32) mmol/L Anion Gap (3-11) BUN (7-18) mg/dl Creatinine (0.6-1.4) mg/dl Est Cr Clr Drug Dosing ml/min Est GFR ( Amer) Est GFR (Non-Af Amer) BUN/Creatinine Ratio (10-20) Glucose (70-99) mg/dl Calcium (8.5-10.1) mg/dl Total Bilirubin (0.2-1) mg/dl Direct Bilirubin (0-0.2) mg/dl AST (15-37) U/L ALT (12-78) U/L Alkaline Phosphatase (45-117) U/L Total Creatine Kinase (39-308) U/L Total Protein (6.4-8.2) gm/dl Albumin (3.4-5.0) gm/dl Hepatitis A IgM Ab NON-REACTIVE (NON-REACTIVE) Hep B Core IgM Ab NON-REACTIVE (NON-REACTIVE) PG Care Time/CCT Total # of Minutes Spent Total Time Spent with Patient: Total time spent is greater than 50% in coordination of care (as documented) at patient's floor/unit and/or counseling patient: Coding Level of Care Code 20549 Subseq Hosp Care Lvl 3 Diagnoses Rhabdomyolysis M62.82 Rhabdomyolysis type: non-traumatic Transaminitis R74.0 Microscopic hematuria R31.29 Asthma J45.909 DVT prophylaxis Z29.9 (1) Rhabdomyolysis Rhabdomyolysis type: non-traumatic Qualified Code(s): M62.82 - Rhabdomyolysis
[2019-12-28] MEDS: POLYETHYLENE (MIRALAX) 17 GM PACK PO SCH (17:22)
[2019-12-28] MEDS ORDERED: DOCUSATE SODIUM 100 MG CAP PO ONE (19:00)
[2019-12-29] MEDS: SODIUM CHLORIDE 0.9% 1000ML 1,000 ML IV SCH ×5 (03:24→23:38)
[2019-12-29] MEDS: POLYETHYLENE (MIRALAX) 17 GM PACK PO SCH (07:37)
[2019-12-29] MEDS: ENOXAPARIN INJ 40 MG/0.4 ML SYR SQ SCH (07:37)
[2019-12-29 08:25] LABS: Alanine Aminotransferase 281 U/L (12-78); Aspartate Aminotransferase 418 U/L (15-37); Blood Urea Nitrogen 8 mg/dl (7-18); Calcium 8.7 mg/dl (8.5-10.1); Carbon Dioxide 25 mmol/L (21-32); Chloride 111 mmol/L (98-107); Creatinine Clr Calc Pharmacy 146.3 ml/min; Est GFR (African American) 135.2; Est GFR (Non-African American) 116.7; Glucose 81 mg/dl (70-99); Sodium 142 mmol/L (136-145)
[2019-12-29 08:57] LABS: Alkaline Phosphatase 64 U/L (45-117); Bilirubin Direct < 0.1 mg/dl (0-0.2); Bilirubin,Total 0.4 mg/dl (0.2-1); Total Protein 6.2 gm/dl (6.4-8.2)
[2019-12-29 09:52] LABS: Creatine Kinase 27384 U/L (39-308)
--- NOTE | 2019-12-29 15:21 | Hospitalist Progress Note ---
Date of Service December 29, 2019 Assessment & Plan (1) Rhabdomyolysis: 29 yo M PMHx asthma presents for rhabdomyolysis and transaminitis. Rhabdomyolysis without acute kidney injury or compartment syndrome: * CK on arrival >100,000. Without MARY, Cr 1.1. US UE negative for DVT * IVF increased to 225cc/hr but will decrease back to 200cc/hr. Patient with significant response to IVF * [place] [address]. Cr stable at 0.84 * Concerns for developing compartment syndrome --> Orthopedics consulted. R eached out to Dr. Caruso test preparation tutor, Dr. Sousa to come up to see patient * I&O acceptable * Follow labs (2) Transaminitis: * Improving * See #1 * AST 1880, ALT 493 on arrival, down to 418, 281 * Likely due to rhabdomyolysis as above. * Hepatitis panel negative * LFTs in AM (3) Microscopic hematuria: * On UA patient with blood and 5-10 RBCs. * While would expect to find blood on UA due to myoglobinuria in rhabdomyolysis, would not expect microscopic hematuria. * Repeat UA pending (4) Asthma: * Chronic, on albuterol PRN outpatient. * Continue albuterol PRN (5) DVT prophylaxis: * SCDs * Lovenox Admission and Anticipated Discharge Date Admission Date: December 26, 2019 Subjective Patient still producing adequate amount of urine. States more clear in color today. Does note increased swelling and occasional numbness of R fourth and fifth digits and slight numbness/tingling to L hand. Some pain as well today which is new from yesterday. Still with ROM, slightly improved from yesterday but still not at baseline. Feeling tired today. Discussed will reach out to ortho team for evaluation of compartment syndrome. Pulses still present at this time. Review of Systems Review of Systems: All systems reviewed & are unremarkable except as noted in HPI & below Physical Exam Constitutional: WD/WN, vitals as above no acute distress Eyes: PERRL, conjunctivae normal, anicteric sclerae Neck: trachea midline, no thyromegaly Respiratory: normal respiratory effort, lungs clear to auscultation Cardiovascular: RRR, no murmur, no edema Gastrointestinal (Abdomen): normal bowel sounds, soft, nontender, no hep atosplenomegaly Musculoskeletal: bilateral UE swelling. 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 Skin: warm, dry Neurologic: patellar DTR's 2+ bilat, sensation intact Psychiatric: A+Ox3, euthymic affect Lymphatic: no cervical or axillary lymphadenopathy Results & Data Results & Data ([facility]) Vital Signs (Past 12 Hours) Vital Signs Temp Pulse Resp BP BP Pulse Ox 12/29/19 15:04 36.8 C 74 136/63 100 12/29/19 11:43 36.8 C 64 18 129/63 99 12/29/19 07:36 36.7 C 64 17 128/73 99 12/29/19 03:45 36.7 C 52 L 18 120/68 98 Laboratory Results 12/29/19 Range/Units 07:14 Sodium 142 (136-145) mmol/L Potassium 4.0 (3.5-5.1) mmol/L Chloride 111 H (98-107) mmol/L Carbon Dioxide 25 (21-32) mmol/L Anion Gap 5.0 (3-11) BUN 8 (7-18) mg/dl Creatinine 0.84 (0.6-1.4) mg/dl Est Cr Clr Drug Dosing 146.3 ml/min Est GFR ( Amer) 135.2 Est GFR (Non-Af Amer) 116.7 BUN/Creatinine Ratio 9.0 L (10-20) Glucose 81 (70-99) mg/dl Calcium 8.7 (8.5-10.1) mg/dl Total Bilirubin 0.4 (0.2-1) mg/dl Direct Bilirubin < 0.1 (0-0.2) mg/dl AST 418 H (15-37) U/L ALT 281 H (12-78) U/L Alkaline Phosphatase 64 (45-117) U/L Total Creatine Kinase 76880 H (39-308) U/L Total Protein 6.2 L (6.4-8.2) gm/dl Albumin 3.0 L (3.4-5.0) gm/dl PG Care Time/CCT Total # of Minutes Spent Total Time Spent with Patient: Total time spent is greater than 50% in coordination of care (as documented) at patient's floor/unit and/or counseling patient: Coding Level of Care Code 76904 Subseq Hosp Care Lvl 3 Diagnoses Rhabdomyolysis M62.82 Rhabdomyolysis type: non-traumatic Transaminitis R74.0 Microscopic hematuria R31.29 Asthma J45.909 DVT prophylaxis Z29.9 (1) Rhabdomyolysis Rhabdomyolysis type: non-traumatic Qualified Code(s): M62.82 - Rhabdomyolysis
--- NOTE | 2019-12-29 17:57 | Orthopedic Consultation ---
Date of Consultation December 29, 2019 Assessment & Plan (1) Rhabdomyolysis: At this point I will see any signs of compartment syndrome. He has a little bit of numbness but it is on and off and overall his symptoms are improving. I do not see any reason to do full compartment releases of his f orearms. This will get better with time. He just needs to continue the fluids and the swelling will continue to decrease. If you have any further questions regarding his care please feel free to contact me personally on my cell phone at [phone]. Present on Admission?: Yes History of Present Illness Reason for Consultation: Rule out compartment syndrome Attending Physician: Alfred Beltran MD History of Present Illness Judd is a 29-year-old male prisoner who was doing a biceps and a forearm workout about 3 days ago when he began having significant pain and swelling in his arms. The pain and swelling were quite severe. He came to the emergency room and was diagnosed with rhabdo myelitis. All x-rays and further work-up was negative. His creatinine kinase was above 100,000. He was admitted to the medical service. He has been receiving fluids. Overall the swelling has gone down considerably. He is feeling better. His creatinine kinase has gone down to 27,000. He started complaining of a little bit of on and off numbness in his small finger and his ring finger as well as in his index finger of his right hand. He says that sometimes the numbness goes away completely and then sometimes he notices a little bit of tingling in that area. He is not having much pain in his forearms at this time. He has no other complaints. Allergies Allergy/AdvReac Type Severity Reaction Status Date / Time No Known Allergies Allergy Verified 12/26/19 15:51 Home Medications Home Medications Medication Instructions Recorded Confirmed Type fluticasone propionate 1 applic TOPICAL TID 12/26/19 12/26/19 History iylmiitg-fmwnjakelod-crbig, wh 1 applic TOPICAL BID 12/26/19 12/26/19 History [Cetaphil Moisturizing] levalbuterol tartrate [Xopenex HFA] 2 inh INHALATION QID PRN 12/26/19 12/26/19 History terbinafine HCl 1 applic TOPICAL TID 12/26/19 12/26/19 History Patient History Medical History Asthma Surgical History No pertinent past surgical history Family History Other Family history non-contributory Social History Smoking Status: Former smoker Tobacco Type: Cigarettes Hx Alcohol Use: No Hx Substance Use: No Preferred Language: Austrian Communication Ability: Effective Risk Assessment Analyst Required: No Beliefs That Will Affect Care: None Current Living Situation: Other Current Living Situation Comment: [facility] Feels Safe at Home: Yes Review of Systems Review of Systems: All systems reviewed & are unremarkable except as noted in HPI & below Physical Exam Constitutional: WD/WN, vitals as above Eyes: PERRL, conjunctivae normal, anicteric sclerae ENMT: external ear and nose normal, oropharynx normal Neck: trachea midline, no thyromegaly Respiratory: normal respiratory effort Cardiovascular: RRR, no murmur, no edema Gastrointestinal (Abdomen): normal bowel sounds, soft, nontender, no hepatosplenomegaly Musculoskeletal: On physical examination of his right arm, he has some swelling around his biceps region and his forearm. He has range of motion of his elbow from about 20 to 130 degrees. Is full range of motion of his wrist. He can make a full fist with his hand. He has good capillary refill in his fingers. He has a little bit of numbness in the ulnar nerve distribution of his hand as well as in the index finger. He does not have much numbness on examination. He has no weakness in his hand or his wrist. Examination of his left arm shows some swelling of the upper arm and the forearm. He does not complain of any numbness in his left hand. Psychiatric: A+Ox3, euthymic affect Results & Data ([facility]) Vital Signs (Past 12 Hours) Vital Signs Temp Pulse Pulse Resp BP BP Pulse Ox 12/29/19 15:04 36.8 C 74 136/63 100 12/29/19 15:00 59 L 12/29/19 11:43 36.8 C 64 18 129/63 99 12/29/19 07:36 36.7 C 64 17 128/73 99 PG Care Time/CCT Total # of Minutes Spent Total Time Spent with Patient: Total time spent is greater than 50% in coordination of care (as documented) at patient's floor/unit and/or counseling patient: Coding Level of Care Code 69752 Inpt Consult Level 3 Diagnoses Rhabdomyolysis M62.82 Rhabdomyolysis type: non-traumatic (1) Rhabdomyolysis Rhabdomyolysis type: non-traumatic Qualified Code(s): M62.82 - Rhabdomyolysis
[2019-12-29 18:25] LABS: Appearance Urine Clear (Clear); Bilirubin Urine Negative (Negative); Blood Urine Negative (Negative); Color Urine Yellow; Glucose Urine UA Negative (Negative); Ketones Urine Negative (Negative); Leukocyte Esterase Urine Negative (Negative); Nitrite Urine Negative (Negative); Protein Urine Negative (Negative); Specific Gravity Urine 1.008 (1.000-1.030); Urobilinogen Urine Negative (Negative)
[2019-12-30] MEDS: SODIUM CHLORIDE 0.9% 1000ML 1,000 ML IV SCH ×2 (04:40→10:11)
[2019-12-30 08:09] LABS: Alanine Aminotransferase 254 U/L (12-78); Albumin Level 3.3 gm/dl (3.4-5.0); Aspartate Aminotransferase 267 U/L (15-37); Bilirubin Direct < 0.1 mg/dl (0-0.2); Blood Urea Nitrogen 7 mg/dl (7-18); Calcium 8.8 mg/dl (8.5-10.1); Carbon Dioxide 26 mmol/L (21-32); Chloride 110 mmol/L (98-107); Creatinine Clr Calc Pharmacy 138.8 ml/min; Est GFR (African American) 132.7; Est GFR (Non-African American) 114.5; Glucose 83 mg/dl (70-99); Potassium 3.9 mmol/L (3.5-5.1); Sodium 142 mmol/L (136-145)
[2019-12-30 08:36] LABS: Alkaline Phosphatase 70 U/L (45-117); Bilirubin,Total 0.5 mg/dl (0.2-1); Creatine Kinase 13717 U/L (39-308); Total Protein 6.5 gm/dl (6.4-8.2)
[2019-12-30] MEDS: POLYETHYLENE (MIRALAX) 17 GM PACK PO SCH (10:10)
[2019-12-30] MEDS: ENOXAPARIN INJ 40 MG/0.4 ML SYR SQ SCH (10:10)
--- NOTE | 2019-12-30 10:53 | Discharge Summary ---
Date of Service December 30, 2019 Admission HPI Per Admitting Provider 29 yo M PMHx asthma presents from [facility] for bilateral bicep swelling x5 days. Reports that on Wednesday he did his typical work out, which includes bicep curls pushups and pull ups, and the following day he felt sore. Due to his soreness he took 1 or 2 ibuprofen but no Tylenol. Since Wednesday has started noticing worsening swelling of his biceps bilaterally as well as darkening urine, though the soreness he had on Wednesday has somewhat resolved. Was evaluated at the [facility] and advised to come to ED for concern for rhabdomyolysis. Does not recall any direct trauma to either arm. Was not working out in a more vigorous capacity than his norm. No fevers or chills, no SOB or CP, no nausea or vomiting, no arm or leg pains, no constipation or diarrhea. No new medications. In the ED had labwork which showed AST 1880, ALT 493, CK >100,000, Cr 1.1 (no baseline on file), TSH normal, CBC without anemia, leukocytosis, thrombocytopenia. Had US bilateral UE without evidence of DVT. UA with blood and RBCs. Dr. Sousa with Orthopedics evaluated patient and did not feel that the patient was developing compartment syndrome. Patient was given a total of 2L NSS boluses. Hospitalist service consulted for admission. Admission Exam Per Admitting Provider Constitutional: WD/WN, vitals as above Eyes: PERRL, conjunctivae normal, anicteric sclerae ENMT: external ear and nose normal, oropharynx normal Neck: normal visual inspection Respiratory: normal respiratory effort, lungs clear to auscultation Cardiovascular: RRR, no murmur, no edema peripheral pulses intact bilateral UE Gastrointestinal (Abdomen): normal bowel sounds, soft, nontender, no hepatosplenomegaly Musculoskeletal: no cyanosis or clubbing, extremities motor strength 5/5 Skin: no rashes, warm and dry bilateral biceps with tense skin, no erythema or warmth, no tenderness to palpation Neurologic: moves all extremities; no focal motor deficits Speech / Cognition: normal speech Motor/Sensory: no tremor sensation intact bilateral UE Psychiatric: A+Ox3, euthymic affect Principal Diagnosis Rhabdomyolysis Discharge Exam Constitutional: WD/WN, vitals as above no acute distress Eyes: PERRL, conjunctivae normal, anicteric sclerae Neck: trachea midline, no thyromegaly Respiratory: normal respiratory effort, lungs clear to auscultation Cardiovascular: RRR, no murmur, no edema Gastrointestinal (Abdomen): normal bowel sounds, soft, nontender, no hepatosplenomegaly Musculoskeletal: bilateral UE swelling. Improved ROM 20-120 degrees. Pickling Machine Operator strength equal. NVI. Radial and ulnar pulses palpable bilaterally Skin: warm, dry Neurologic: patellar DTR's 2+ bilat, sensation intact Psychiatric: A+Ox3, euthymic affect Lymphatic: no cervical or axillary lymphadenopathy Discharge Data Allergies Allergy/AdvReac Type Severity Reaction Status Date / Time No Known Allergies Allergy Verified 12/26/19 15:51 Consultations 12/29/19 12:15 Consult Orthopedic Surgery Stat Ordered Studies 12/26/19 14:52 US venous doppler UE BI Stat Hospital Course (1) Rhabdomyolysis: 29 yo M PMHx asthma presents for rhabdomyolysis and transaminitis. Rhabdomyolysis without acute kidney injury or compartment syndrome: * CK on arrival >100,000. Without MARY, Cr 1.1. US UE negative for DVT * IVF increased to 225cc/hr but will decrease back to 200cc/hr. Patient with significant response [place] * [place] [address]. Cr continued to be stable, 0.88 * Dr Sousa from orthopedics evaluated for possible compartment syndrome without continued concerns * Will need to continue on IVF NS @ 200cc/hr with daily CKs (and BMP,LFTs) until normalized * UA will needed repeated to ensure no further hematuria -- if noted, will need further evaluation outpatient (2) Transaminitis: * Improving * See #1 * AST 1880, ALT 493 on arrival, down to 267, 281 * Likely due to rhabdomyolysis as above. * Hepatitis panel negative * Labs as above (3) Microscopic hematuria: * On UA patient with blood and 5-10 RBCs. * While would expect to find blood on UA due to myoglobinuria in rhabdomyolysis, would not expect microscopic hematuria. * Repeat UA without blood, but did not obtain RBC count -- see above (4) Asthma: * Chronic, on albuterol PRN outpatient. * Continued albuterol PRN. No s/sx exacerbation during admission (5) DVT prophylaxis: * SCDs * Lovenox while inpatient Discharged back to intermediate with IVF to be continued at NSS @ 200cc/hr with daily labs as above until resolution Total Time Total Time Spent Total Time Spent (In Minutes): 70 Discharge Plan Discharge Items [facility] Disposition[facility] Reason For Visit: RHABDOMYOLYSIS, TRANSAMINITIS Discharge Diagnosis: Rhabdomyolysis Condition on Discharge: Good Goals: You have been hospitalized for an acute medical problem. During your stay at [facility], we have made an effort to correct the problem that brought you to the hospital while keeping you as comfortable as possible. Medications were used to bring your condition under control and your discharge instructions will include directions for any medications you should take after leaving the hospital. Please make sure you see your Primary Care Provider as part of your follow up plan. Activity: As commented below Activity Comment: avoid heavy lifting/excessive work-out for 2 weeks Non-emergency contact: Primary Care Provider Call non-emergency contact if: you have any medication questions, your symptoms worsen and your pain is not controlled Follow-up/Referrals: Chelsea FREY [Primary Care Provider] - Diet: Regular Addtl Attending Provider Instructions: You were hospitalized for rhabdomyolysis (due to increased muscle breakdown from working out). You were treated with IV fluids and your labs have been monitored. Your kidney function has stayed stable and labs are returning to normal. Please avoid any heavy lifting or extended exercise for at least two weeks to ensure resolution. You should also be mindful to limit heavy lifting and ensure adequate hydration once returning to previous activity. It is recommended that you continue IV fluids and have daily labs to continue to monitor your progress. You should have follow up UA to make sure no further blood in your urine. Please follow up with provider at correctional facility upon arrival. Please return to the emergency room with any worsening swelling/pain, numbness/tingling or loss of sensation, chest pain, shortness of breath or for any symptoms that are concerning for you. It has been a pleasure being a part of the medical team providing for you while you have been in the hospital. Take care! Pending Studies at Discharge: No Stand-Alone Forms: My [facility] Skilled Items Patient informed of condition?: Yes Discharge Level of Care: Other Communicable Disease: No Discharge Prognosis: Improving Lines: Peripheral IV Urinary Catheter: No Medications and DC Order Prescriptions: Continued terbinafine HCl 1 % Cream 1 applic TOPICAL TID RF: 0 fluticasone propionate 0.05 % Cream 1 applic TOPICAL TID RF: 0 Cetaphil Moisturizing Cream 1 applic TOPICAL BID RF: 0 levalbuterol tartrate [Xopenex HFA] 45 mcg/actuation Hfa Aerosol Inhaler 2 inh INHALATION QID PRN (Reason: Shortness Of Breath) RF: 0 Discharge Orders: Discharge Order (Routine); Ordered 12/30/19 Ordered By: Denisse Bethea Admission Data Admit Date/Time: 12/26/19 18:44 Attending Provider: Alfred Beltran Admit Provider: Kylah Ramirez Primary Care Provider: Chelsea FREY Other Providers: Brandon Caruso Coding Level of Care Code D/C Day Management >30 mins Diagnoses Rhabdomyolysis M62.82 Rhabdomyolysis type: non-traumatic Transaminitis R74.0 Microscopic hematuria R31.29 Asthma J45.909 DVT prophylaxis Z29.9
[2019-12-30] MEDS ORDERED: DOCUSATE SODIUM 100 MG CAP PO ONE (10:58)
[2019-12-30] MEDS ORDERED: POLYETHYLENE (MIRALAX) 17 GM PACK PO SCH (11:00)
== END 2019-12-30 15:00 | DRG 558 ==
LOC: ED 14:26 → SUATTDRO 18:44 → 2W 18:44